=== PATIENT | male | born 1965 | race African-American/Black ===

== ENCOUNTER 2022-11-07 12:22 | Inpatient (IN) ==
[2022-11-07] MEDS ORDERED: SODIUM CHLORIDE 0.9% 1000ML 1,000 ML IV ONE ×2 (12:53→13:36)
[2022-11-07 12:54] LABS: Basophils # (auto) 0.01 K/uL (0-0.2); Basophils % (auto) 0.1 %; Hematocrit (blood only) 51.2 % (42.0-52.0); Hemoglobin 14.9 g/dl (14.0-18.0); Immature Granulocytes # (auto) 0.09 K/uL (0.01-0.20); Immature Granulocytes % (auto) 0.8 %; Lymphocytes # (auto) 0.31 K/uL (1.2-3.4); Lymphocytes % (auto) 2.7 %; Mean Corpuscular Hemoglobin 32.3 pg (25.0-34.0); Mean Corpuscular Hgb Conc 29.1 g/dL (32.0-36.0); Mean Corpuscular Volume 110.8 fL (80.0-100.0); Mean Platelet Volume 12.9 fL (9.4-12.4); Monocytes # (auto) 1.11 K/uL (0.11-0.59); Monocytes % (auto) 9.7 %; Neutrophils # (auto) 9.95 K/uL (1.40-6.50); Neutrophils % (auto) 86.7 %; Platelet Count 264 K/uL (130-400); RDW Coefficient of Variation 13.7 % (11.5-14.5); RDW Standard Deviation 56.2 fL (36.4-46.3); Red Blood Count 4.62 M/uL (4.70-6.10); White Blood Count 11.47 K/ul (4.8-10.8)
--- NOTE | 2022-11-07 13:19 | Electrocardiogram Report ---
Test Reason : Blood Pressure : / mmHG Vent. Rate : 120 BPM Atrial Rate : 120 BPM P-R Int : 132 ms QRS Dur : 088 ms QT Int : 334 ms P-R-T Axes : 057 058 043 degrees QTc Int : 472 ms Sinus tachycardia Otherwise normal ECG No previous ECGs available Confirmed by Geremias Casey ([id number]) on 11/07/2022 1:19:00 PM Referred By: Confirmed By:Geremias Casey
[2022-11-07] MEDS ORDERED: GLUCAGON FOR INJ 1 MG VIAL SQ PRN (13:36)
[2022-11-07] MEDS ORDERED: GLUCOSE 10 TAB/TUBE PO PRN (13:36)
[2022-11-07] MEDS ORDERED: HHS GOAL RANGE 250-350 mg/dl ONE (13:36)
[2022-11-07] MEDS ORDERED: GLUCOSE 40% GEL 15 GM TUBE PO PRN (13:36)
[2022-11-07] MEDS ORDERED: CARBOHYDRATES FOR HYPOGLYCEMIA PO PRN (13:36)
[2022-11-07] MEDS ORDERED: DEXTROSE 50% 50 ML SYRINGE IV PRN (13:36)
[2022-11-07 13:39] LABS: RBC Morphology Unremarkable
[2022-11-07 13:40] LABS: Albumin Globulin Ratio 1.3 (0.9-2); Albumin Level 4.7 gm/dl (3.4-5.0); BUN Creatinine Ratio 21.7 (10-20); Bilirubin,Total 0.8 mg/dl (0.2-1.0); Calcium 10.3 mg/dl (8.5-10.1); Creatinine Clr Calc Pharmacy 41.5 ml/min; Est GFR (African American) 28.3 ml/min; Est GFR (Non-African American) 24.4 ml/min; Globulin 3.5 gm/dl (2.5-4.0); Potassium 7.4 mmol/L (3.5-5.1); Total Protein 8.2 gm/dl (6.0-8.3)
[2022-11-07] MEDS ORDERED: SODIUM ZIRCONIUM CYCLOSILICATE 10 GM PACKET PO STA (13:40)
[2022-11-07] MEDS ORDERED: SODIUM BICARB 8.4% INJ 50 MEQ/50 ML SYR IV STA (13:40)
[2022-11-07] MEDS ORDERED: NovoLIN-R INSULIN PER UNIT CHARGE IV STA (13:40)
[2022-11-07 13:43] LABS: iSTAT Blood Urea Nitrogen 50 mg/dl (7-18); iSTAT Carbon Dioxide 13 mmol/L (24-31); iSTAT Chloride 107 mmol/L (101-112); iSTAT Creatinine 1.9 mg/dl (0.6-1.3); iSTAT Glucose > 700 mg/dl (70-99); iSTAT Hematocrit 47 % (42-52); iSTAT Potassium 7.7 mmol/L (3.3-5.0); iSTAT Sodium 134 mmol/L (135-144)
--- NOTE | 2022-11-07 13:51 | Emergency Department Note ---
Impression & Plan DKA (diabetic ketoacidosis), Acute hyperglycemia, ANNY (acute kidney injury), Acute dehydration, Hyperkalemia ED Provider Note INFORMANT: Patient and EMS ED PROVIDER(S): Henri Camacho DO CHIEF COMPLAINT: Altered mental status, hyperglycemia PLAN: Disposition: Admission Condition: Stable Outpatient prescription management: none Referral: I spoke with the hospitalist, who will see the patient for admission/observation and further evaluation and consultation. MEDICAL DECISION MAKING: This is a 57-year-old male who presents to the ED with a chief complaint of change in mental status/confusion. The patient is also hyperglycemic. The patient was at a local truck stop. 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 He states that he has not been taking his medications for his diabetes for the past 2 months or so. He was at a truck stop and was a little confused. A passerby called EMS. EMS found him to be hyperglycemic. Initially he refused transport but eventually was convinced to come in for evaluation. I did speak with EMS about the patient. The patient denies any illness. Denies any abdominal pains, chest pains or shortness of breath. He states he is unsure why has not been taking his medications. He does have a diabetic specialist in [place]. The patie nt's vital signs reveal tachycardia. Smell of ketones in the room. Exam reveals tachypnea. BSG was high. Glucose from the lab came back at 1255. BUN is 60 and creatinine is 2.76. This is likely acute kidney injury related to dehydration. Anion gap is 28 consistent with a metabolic acidosis. His potassium was 7.4 with an EKG showing sinus tach at a rate of 120. His CBC did not show any concerning leukocytosis or anemia. The patient was hydrated with 2 L normal saline IV. He was given 10 units of regular IV insulin as well as started on insulin drip. He was given some calcium gluconate as his EKG did show some peaked T waves. He was also given Lokelma. He will be seen by the hospitalist service for further evaluation and care. Triage Nursing notes reviewed. Vital Signs: reviewed Prior /Outside records reviewed: none Differential diagnosis: Differential includes DKA, HH NK, dehydration, acute kidney injury, electrolyte abnormality, dysrhythmia, infection, other. Diagnostics, as interpreted by me: 12 lead ECG: Sinus tach rate of 120. No ST elevation. There is some peaked T waves in the anterior leads. Normal QTC. No PVCs. Cardiac Monitoring was ordered: Sinus tachycardia rate in the 120 range. Medical decision rules: none Imaging studies: Chest x-ray: No acute disease. No pneumothorax or pneumonia. Procedures: none. Critical care: I have personally spent 30 minutes of critical care time in the direct management of this patient. This includes bedside care, interpretation of diagnostic studies, and testing, discussion with consultants, patient, and family members, and other required patient management activities. This 30 minutes is in excess of all separately billable procedures. HPI: See MDM above. PAST MEDICAL HISTORY: See Below PAST SURGICAL HISTORY: See Below SOCIAL HISTORY: See Below HOME MEDICATIONS: See Below ALLERGIES: See Below VITALS: See Below PHYSICAL EXAMINATION: CONSTITUTIONAL/VITAL SIGNS: Reviewed GENERAL: Non-toxic in appearance. INTEGUMENTARY: Warm, dry, and [place]. HEAD: Normocephalic. EYES: without scleral icterus. ENT/OROPHARYNX: clear and moist. RESPIRATORY: No increased work of breathing. Lungs clear. CARDIOVASCULAR: Regular rate. Regular rhythm. GI/ABDOMEN: Soft and nontender. . EXTREMITIES: Normal NEUROLOGICAL: Intact without focal deficits. PSYCHIATRIC: Normal affect. MUSCULOSKELETAL: Normal. TRIAGE NURSING DOCUMENTATION REVIEWED. Past Med/Surg History Social History Smoking Status: Heavy tobacco smoker Tobacco Type: Cigarettes Feels Safe at Home: Yes Results & Data (ED) Vital Signs Vital Signs - 24 hr 11/07/22 12:39 11/07/22 12:39 Temperature 35.7 C L Temperature Source Oral Pulse Rate 125 H Pulse Rhythm Regular Pulse Strength Normal Respiratory Rate 24 Respiratory Effort / Characteristics Non-Labored Respiratory Depth Normal Respiratory Pattern Regular Blood Pressure 128/72 Blood Pressure Mean 90 Blood Pressure Position Lying Pulse Oximetry 98 Oxygen Delivery Method Room Air Room Air Sepsis Recent Fever Within 48 Hours No Sepsis New/Unexplained Change in Mental Status Yes Sepsis Action Taken by Nursing Physician Notified Laboratory Data 11/07/22 12:40 11/07/22 12:40 Lab Results 11/07/22 11/07/22 11/07/22 Range/Units 12:40 12:40 12:52 WBC 11.47 H (4.8-10.8) K/ul RBC 4.62 L (4.70-6.10) M/uL Hgb 14.9 (14.0-18.0) g/dl POC Hgb (14.0-18.0) g/dl Hct 51.2 (42.0-52.0) % POC Hct (42-52) % MCV 110.8 H (80.0-100.0) fL MCH 32.3 (25.0-34.0) pg MCHC 29.1 L (32.0-36.0) g/dL RDW Std Deviation 56.2 H (36.4-46.3) fL RDW Coeff of Jose M 13.7 (11.5-14.5) % Plt Count 264 (130-400) K/uL MPV 12.9 H (9.4-12.4) fL Immature Gran % (Auto) 0.8 % Neut % (Auto) 86.7 % Lymph % (Auto) 2.7 % Dawes % (Auto) 9.7 % Eos % (Auto) 0.0 % Baso % (Auto) 0.1 % Neut # (Auto) 9.95 H (1.40-6.50) K/uL Lymph # (Auto) 0.31 L (1.2-3.4) K/uL Dawes # (Auto) 1.11 H (0.11-0.59) K/uL Eos # (Auto) 0.00 (0-0.50) K/uL Baso # (Auto) 0.01 (0-0.2) K/uL Immature Gran # (Auto) 0.09 (0.01-0.20) K/uL RBC Morphology Unremarkable POC Sodium (135-144) mmol/L Sodium 132 L (136-145) mmol/L POC Potassium (3.3-5.0) mmol/L Potassium 7.4 H* (3.5-5.1) mmol/L POC Chloride (101-112) mmol/L Chloride 92 L (98-107) mmol/L Carbon Dioxide 12 L (21-32) mmol/L POC Total CO2 (24-31) mmol/L Anion Gap 28 H (3-11) POC Anion Gap (16-25) mmol/L POC BUN (7-18) mg/dl BUN 60 H (6-23) mg/dl Creatinine 2.76 H (0.6-1.4) mg/dl POC Creatinine (0.6-1.3) mg/dl Est Cr Clr Drug Dosing 41.5 ml/min Est GFR ( Amer) 28.3 ml/min Est GFR (Non-Af Amer) 24.4 ml/min BUN/Creatinine Ratio 21.7 H (10-20) Glucose 1255 H* (70-99(Fasting)) mg/dl POC Glucose (other) (70-99) mg/dl Lactate (0.4-2.0) mmol/L Calcium 10.3 H (8.5-10.1) mg/dl POC Ioniz Calcium Judson (1.12-1.32) mmol/l Phosphorus 10.0 H (2.5-4.9) mg/dl Magnesium 3.4 H (1.7-2.4) mg/dl Total Bilirubin 0.8 (0.2-1.0) mg/dl AST 7 L (13-39) U/L ALT 8 (7-52) U/L Alkaline Phosphatase 88 (34-104) U/L Total Protein 8.2 (6.0-8.3) gm/dl Albumin 4.7 (3.4-5.0) gm/dl Globulin 3.5 (2.5-4.0) gm/dl Albumin/Globulin Ratio 1.3 (0.9-2) Procalcitonin 0.62 H (0-0.5) ng/ml SARS-CoV-2, RNA, NAAT (NEGATIVE) 11/07/22 11/07/22 11/07/22 Range/Units 13:15 13:15 13:28 WBC (4.8-10.8) K/ul RBC (4.70-6.10) M/uL Hgb (14.0-18.0) g/dl POC Hgb 16.0 (14.0-18.0) g/dl Hct (42.0-52.0) % POC Hct 47 (42-52) % MCV (80.0-100.0) fL MCH (25.0-34.0) pg MCHC (32.0-36.0) g/dL RDW Std Deviation (36.4-46.3) fL RDW Coeff of Jose M (11.5-14.5) % Plt Count (130-400) K/uL MPV (9.4-12.4) fL Immature Gran % (Auto) % Neut % (Auto) % Lymph % (Auto) % Dawes % (Auto) % Eos % (Auto) % Baso % (Auto) % Neut # (Auto) (1.40-6.50) K/uL Lymph # (Auto) (1.2-3.4) K/uL Dawes # (Auto) (0.11-0.59) K/uL Eos # (Auto) (0-0.50) K/uL Baso # (Auto) (0-0.2) K/uL Immature Gran # (Auto) (0.01-0.20) K/uL RBC Morphology POC Sodium 134 L (135-144) mmol/L Sodium (136-145) mmol/L POC Potassium 7.7 H* (3.3-5.0) mmol/L Potassium (3.5-5.1) mmol/L POC Chloride 107 (101-112) mmol/L Chloride (98-107) mmol/L Carbon Dioxide (21-32) mmol/L POC Total CO2 13 L (24-31) mmol/L Anion Gap (3-11) POC Anion Gap 22.0 (16-25) mmol/L POC BUN 50 H (7-18) mg/dl BUN (6-23) mg/dl Creatinine (0.6-1.4) mg/dl POC Creatinine 1.9 H (0.6-1.3) mg/dl Est Cr Clr Drug Dosing ml/min Est GFR ( Amer) ml/min Est GFR (Non-Af Amer) ml/min BUN/Creatinine Ratio (10-20) Glucose (70-99(Fasting)) mg/dl POC Glucose (other) > 700 H* (70-99) mg/dl Lactate 2.5 H* (0.4-2.0) mmol/L Calcium (8.5-10.1) mg/dl POC Ioniz Calcium Judson 1.20 (1.12-1.32) mmol/l Phosphorus (2.5-4.9) mg/dl Magnesium (1.7-2.4) mg/dl Total Bilirubin (0.2-1.0) mg/dl AST (13-39) U/L ALT (7-52) U/L Alkaline Phosphatase (34-104) U/L Total Protein (6.0-8.3) gm/dl Albumin (3.4-5.0) gm/dl Globulin (2.5-4.0) gm/dl Albumin/Globulin Ratio (0.9-2) Procalcitonin (0-0.5) ng/ml SARS-CoV-2, RNA, NAAT NEGATIVE (NEGATIVE) Administered Medications Insulin Human Regular 250 (units/ Sodium Chloride) 250 mls @ 0 mls/hr IV .Q0M [facility]; Protocol Stop: 12/07/22 13:44 Last Admin: 11/07/22 14:33 Dose: 4.7 units/hr, 4.7 mls/hr Documented By: MAZIN Co-signed By: JOSUE Discontinued Medications Sodium Chloride (Nss 1000ml) 1,000 mls @ 999 mls/hr IV .Q1H1M ONE Stop: 11/07/22 13:53 Last Infusion: 11/07/22 14:13 Dose: 0 mls/hr Documented By: Admin: 11/07/22 13:17 Dose: 999 mls/hr Documented By: MAZIN Sodium Chloride (Nss 1000ml) 1,000 mls @ 999 mls/hr IV .Q1H1M ONE Stop: 11/07/22 14:36 Last Infusion: 11/07/22 14:39 Dose: 0 mls/hr Documented By: Admin: 11/07/22 13:59 Dose: 999 mls/hr Documented By: JOSUE Calcium Gluconate () 1,000 mg in 60 mls @ 240 mls/hr IV Q15M [facility] Stop: 11/07/22 14:14 Last Admin: 11/07/22 14:20 Dose: 240 mls/hr Documented By: Infusion: 11/07/22 14:20 Dose: 0 mls/hr Documented By: Admin: 11/07/22 13:58 Dose: 240 mls/hr Documented By: JOSUE Insulin Human Regular (Novolin-R Insulin Per Unit Charge) 10 units IV NOW STA Stop: 11/07/22 13:41 Last Admin: 11/07/22 13:58 Dose: 10 units Documented By: JOSUE Co-signed By: CURT Sodium Bicarbonate (Sodium Bicarb 8.4% Inj 50 Meq/50 Ml Syr) 100 meq IV NOW STA Stop: 11/07/22 13:41 Last Admin: 11/07/22 13:58 Dose: 100 meq Documented By: RSL Sodium Zirconium Cyclosilicate (Sodium Zirconium Cyclosilicate 10 Gm Packet) 10 gm PO NOW STA Stop: 11/07/22 13:41 Last Admin: 11/07/22 13:58 Dose: 10 gm Documented By: RSL Imaging Data Radiologist's Impression: Chest X-Ray 11/07/22 13:57 XR chest 1V portable HISTORY: 57 years-old Male dka/hhnk acute hypertension COMPARISON: None TECHNIQUE: AP view of the chest FINDINGS: Cardiac silhouette is enlarged. No pneumothorax, pleural effusion, airspace consolidation or pulmonary edema. Bones of the chest appear grossly intact. IMPRESSION: No acute process. ACT 112: Negative or not required by law. The above report was generated using voice recognition software. It may contain grammatical, syntax or spelling errors. Electronically signed by: Jaden Spicer M.D. 11/07/2022 2:47 PM Discharge Plan Visit Data Chief Complaint: Lethargic Stated Complaint: HYPERGLYCEMIA ED Provider: Henri Camacho Discharge Problem: DKA (diabetic ketoacidosis), Acute hyperglycemia, ANNY (acute kidney injury), Acute dehydration, Hyperkalemia Forms Stand Alone Forms: [facility] Referrals Referrals: PCP,NO [Primary Care Provider] -
[2022-11-07] MEDS: CALCIUM GLUCONATE 1,000 MG/60 ML BAG IV SCH ×2 (13:58→14:20)
--- NOTE | 2022-11-07 14:03 | History & Physical Report ---
Date of Service November 07, 2022 Assessment & Plan (1) Type 2 diabetes mellitus with hyperosmolar hyperglycemic state (HHS): Plan: Increased anion gap metabolic acidosis 2/2 HHS - s/p 2L NSS, 100meq biarb, 2g cagluc, 10g SZC in ED - VBG 7.18//34/14, Bicarb drip placed initially and transitioned to Normosol after improving/potassium normalized Lactate 2.5 --> 2.1 Creatinine 2.76, patient reports normal creatinine at baseline. Trended Anion gap 28, Bicarb 12 Potassium 7.4, sodium 132 (corrected sodium for glucose is 150). Has received 2 L of crystalloid resuscitation, likely still several liters down. Patient has not been taking insulin for several weeks, suspect progressive chronic process at risk for osmotic damage. Given concurrent hyperkalemia will treat with normal saline for another 1-2 L, continue insulin, trend BMP. Transitined to normosol when able. Patient is mentating and following commands at time of assessment Insulin drip, HHS protocol Follow until serum glucose less than 250, anion gap closes, bicarb greater than 15, pH remains above 7.3 - Hyperphosphatemia: Intact renal function, patient with brisk diuresis of several 100 cc while in ER. Continue to trend. No concurrent hypocalcemia -Lactate and procalcitonin are elevated in the setting of severe volume depletion and HHS. 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 Is in the setting of stopping outpatient medications including metformin, 2 forms of insulin, and a third agent unclear pending reconciliation. Will defer empiric antibiotics at this time of leukocytosis rises, patient becomes febrile, or shows clinical signs of infection will cover empirically at that time. If needed avoid Rocephin 2/2 calcium infusions. Phosphorus 10.0 --> Repeat post fluid rescusitation Magnesium 3.4 (2) ANNY (acute kidney injury): Plan: Trend, 2/2 HHS. Management as noted (3) Hyperkalemia: Plan: Admitting potassium 7.7, was treated in ER with fluids/insulin drip/sodium zirconium Recheck dropped rapidly to 4.4, placement was switched to LR with KCl. Subsequently jeramie to 5.4, fluids adjusted to LR Has received calcium gluconate x2 in ER, 1 additional given at 1400 Patient with nonsustained run of V. tach. Calcium being infused, magnesium recheck pending, BMP recheck pending (4) Hypertension: Plan: Hold lisinopril with ANNY Plan DVT prophylaxis: SCDs, heparin. Defer Lovenox in the setting of ANNY Dispo: PCU CODE STATUS: Full code Diet: N.p.o. History of Present Illness Primary Care Provider: NO PCP Regino Yeboah is a 57-year-old male who presented with confusion and hyperglycemia. 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 Has not been taking antidiabetic medications for 2 months. Passerby found him confused and called EMS at which point he was brought to the hospital. Regino is seen at the bedside. He is sleepy but arouses easily, somewhat irritable but answers questions and follows commands. 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 He reports he is on insulin, and 2 other me dications but has not taken these in several weeks. Reports he has not had any chest pain, chest pressure, shortness breath, difficulty breathing, denies renal disease, NC, neuropathy, strokes. He is oriented to name, year, and state. Denies hospitalization for DM in the past. DM Specialist: Shannan Rodriguez in [place], [place]. [phone]. Pt give spermission to call for information. Medical History: Reviewed Medications: Reviewed Surgical History: Reviewed Allergies: Reviewed Social History: Endorses tobacco use Code Status: Full code Allergies Allergy/AdvReac Type Severity Reaction Status Date / Time No Known Allergies Allergy Unverified 11/07/22 15:12 Home Medications Medication Instructions Recorded Confirmed Type atorvastatin 40 mg tablet 40 mg PO DAILY 11/07/22 11/07/22 History ergocalciferol (vitamin D2) 1,250 50,000 unit PO WK 11/07/22 11/07/22 History mcg (50,000 unit) capsule insulin aspart U-100 100 unit/mL 0 unit subcut DIRECTED 11/07/22 11/07/22 History (3 mL) subcutaneous pen (Novolog FlexPen U-100 Insulin aspart) insulin degludec 200 unit/mL (3 0 unit subcut DIRECTED 11/07/22 11/07/22 History mL) subcutaneous pen (Tresiba FlexTouch U-200 insulin) lisinopril 5 mg tablet 5 mg PO DAILY 11/07/22 11/07/22 History metformin 500 mg tablet,extended 100 mg PO BID 11/07/22 11/07/22 History release 24 hr pioglitazone 30 mg tablet 30 mg PO DAILY 11/07/22 11/07/22 History Past Med/Surg History Social History Smoking Status: Current every day smoker Tobacco Type: Cigarettes Tobacco Cessation Education Requested by Patient: No Hx Alcohol Use: No Hx Substance Use: No Preferred Language: [employer] Equipment Engineer Required: No Beliefs That Will Affect Care: None Feels Safe at Home: Yes Assistive Devices: None Review of Systems Review of Systems: All systems reviewed & are unremarkable except as noted in Subjective Physical Exam Physical Exam: General: A&Ox3. NAD. Cooperative. HEENT: Atraumatic, normocephalic. Mucous membranes are cracked/dry. Pupils equal and reactive to light. Hearing grossly intact. Pulm: CTAB A&P. -wheezes, -rales, -rhonchi. Symmetrical chest rise. No increased work of breathing. No respiratory distress. Cardiac: Regular, tachycardic, -mrg. Radial pulses intact and symmetrical. Abdominal: Nontender, nondistended, soft. BS present. Extremities: Warm, dry. No edema. Rn Oncology Clinical strength intact, wiggles toes. Endorses sensation intact to soft touch in hands and feet. Results & Data Results & Data ([facility]) Vital Signs (Past 12 Hours) Vital Signs Temp Pulse Resp BP Pulse Ox O2 Del Method 11/07/22 12:39 Room Air 11/07/22 12:39 35.7 C L 125 H 24 128/72 98 Room Air PG Care Time/CCT Total # of Minutes Spent Total Time Spent with Patient: Total time spent is greater than 50% in coordination of care (as documented) at patient's floor/unit and/or counseling patient: Coding Level of Care Code 33379 INT INP/OBS CARE 3/75MIN Diagnoses Type 2 diabetes mellitus with hyperosmolar hyperglycemic state (HHS) E11.00 ANNY (acute kidney injury) N17.9 Hyperkalemia E87.5 Hypertension I10
[2022-11-07 14:20] LABS: Magnesium 3.4 mg/dl (1.7-2.4)
[2022-11-07] MEDS ORDERED: STAT IV STA (14:22)
[2022-11-07] MEDS: INSULIN REGULAR 250 UNITS in SODIUM CHLORIDE 0.9% 247.5 ML IV SCH ×2 (14:33→17:41)
--- NOTE | 2022-11-07 14:48 | XRay Report ---
XR chest 1V portable HISTORY: 57 years-old Male dka/hhnk acute hypertension COMPARISON: None TECHNIQUE: AP view of the chest FINDINGS: Cardiac silhouette is enlarged. No pneumothorax, pleural effusion, airspace consolidation or pulmonar y edema. Bones of the chest appear grossly intact. IMPRESSION: No acute process. ACT 112: Negative or not required by law. The above report was generated using voice recognition software. It may contain grammatical, syntax o r spelling errors. Electronically signed by: Jaden Spicer M.D. 11/07/2022 2:47 PM
[2022-11-07] MEDS ORDERED: SODIUM CHLORIDE 0.9% 1000ML 1,000 ML IV SCH ×2 (14:51→15:00)
[2022-11-07 15:05] LABS: Base Excess VBG -13.4 mEq/L; HCO3 VBG 14 mmol/L; Oxygen Saturation VBG < 60.0 %; PCO2 VBG 38 mmHg (38-50); PO2 VBG 34 mmHg; pH VBG 7.18 (7.36-7.41)
[2022-11-07] MEDS: Patient's ALLERGY Info needs ENTERED SCH ×2 (15:12→15:59)
[2022-11-07] MEDS ORDERED: PHARMACY GLYCEMIC MGMT CONSULT PRN (15:48)
[2022-11-07] MEDS ORDERED: SODIUM BICARBONATE 8.4% 100 MEQ in WATER, STERILE 1,000 ML IV SCH (16:00)
[2022-11-07 16:08] LABS: Appearance Urine Clear (Clear); Bilirubin Urine Negative (Negative); Blood Urine Negative (Negative); Color Urine Yellow; Glucose Urine UA 3+ (Negative); Ketones Urine 4+ (Negative); Leukocyte Esterase Urine Negative (Negative); Nitrite Urine Negative (Negative); Protein Urine Negative (Negative); Specific Gravity Urine 1.029 (1.000-1.030); Urobilinogen Urine Negative (Negative)
[2022-11-07 16:12] LABS: BUN Creatinine Ratio 24.2 (10-20); Calcium 9.6 mg/dl (8.5-10.1); Creatinine Clr Calc Pharmacy 55.3 ml/min; Est GFR (Non-African American) 34.5 ml/min; Potassium 4.4 mmol/L (3.5-5.1)
[2022-11-07] MEDS ORDERED: CALCIUM GLUCONATE 10% 1,000 MG in DEXTROSE 5% 50 ML IV ONE (16:30)
[2022-11-07] MEDS ORDERED: POTASSIUM CHLORIDE IV SCH (16:45)
[2022-11-07] MEDS ORDERED: NORMOSOL R IV SCH (16:45)
[2022-11-07 17:04] LABS: BUN Creatinine Ratio 22.6 (10-20); Calcium 10.9 mg/dl (8.5-10.1); Creatinine Clr Calc Pharmacy 49.8 ml/min; Est GFR (African American) 35.2 ml/min; Est GFR (Non-African American) 30.4 ml/min; Potassium 5.4 mmol/L (3.5-5.1)
[2022-11-07] MEDS: INSULIN ASPART PER UNIT SC SCH ×2 (17:15→19:20)
[2022-11-07] MEDS: NORMOSOL-R 1,000 ML IV SCH (17:44)
[2022-11-07 18:22] LABS: Magnesium 3.3 mg/dl (1.7-2.4); Phosphorus 5.2 mg/dl (2.5-4.9)
[2022-11-07 19:28] LABS: Estimated Average Glucose 341 mg/dl; Hemoglobin A1C 13.5 % (4.5-5.6)
[2022-11-07 20:27] LABS: Base Excess VBG -4.8 mEq/L; HCO3 VBG 22 mmol/L; Oxygen Saturation VBG < 60.0 %; PCO2 VBG 44 mmHg (38-50); PO2 VBG 31 mmHg
[2022-11-07 21:10] LABS: BUN Creatinine Ratio 24.5 (10-20); Calcium 11.1 mg/dl (8.5-10.1); Creatinine Clr Calc Pharmacy 57.2 ml/min; Est GFR (African American) 41.7 ml/min; Potassium 5.1 mmol/L (3.5-5.1)
[2022-11-07 23:38] LABS: Base Excess VBG -1.8 mEq/L; HCO3 VBG 25 mmol/L; Oxygen Saturation VBG < 60.0 %; PCO2 VBG 48 mmHg (38-50); PO2 VBG 35 mmHg; pH VBG 7.32 (7.36-7.41)
[2022-11-08 00:12] LABS: Calcium 11.6 mg/dl (8.5-10.1)
[2022-11-08 00:30] LABS: BUN Creatinine Ratio 25.3 (10-20); Creatinine Clr Calc Pharmacy 61.6 ml/min; Est GFR (African American) 45.5 ml/min; Est GFR (Non-African American) 39.3 ml/min
[2022-11-08] MEDS: NORMOSOL-R 1,000 ML IV SCH (00:40)
[2022-11-08 04:41] LABS: Base Excess VBG 1.9 mEq/L; HCO3 VBG 29 mmol/L; Oxygen Saturation VBG < 60.0 %; PCO2 VBG 55 mmHg (38-50); PO2 VBG 29 mmHg; pH VBG 7.33 (7.36-7.41)
[2022-11-08 04:44] LABS: BUN Creatinine Ratio 25.7 (10-20); Calcium 10.8 mg/dl (8.5-10.1); Creatinine Clr Calc Pharmacy 61.2 ml/min; Est GFR (African American) 45.2 ml/min; Potassium 4.7 mmol/L (3.5-5.1)
[2022-11-08] MEDS ORDERED: D5W AND 1/2NSS 1,000 ML IV SCH (05:30)
[2022-11-08] MEDS ORDERED: LANTUS PER UNIT CHARGE SQ ONE (07:30)
[2022-11-08] MEDS: INSULIN ASPART PER UNIT SC SCH ×4 (07:51→21:38)
[2022-11-08 09:13] LABS: BUN Creatinine Ratio 27.2 (10-20); Calcium 9.8 mg/dl (8.5-10.1); Creatinine Clr Calc Pharmacy 63.6 ml/min; Est GFR (African American) 47.4 ml/min; Est GFR (Non-African American) 40.9 ml/min; Potassium 4.8 mmol/L (3.5-5.1)
--- NOTE | 2022-11-08 10:22 | Pharmacy Report ---
Pharmacy Glycemic Short Note 2 - Date of Service November 08, 2022 - Glycemic Short BSG Results (Last 24 hours): 11/07/22 11/07/22 11/07/22 12:40 13:28 15:17 Glucose 1255 H* 748 H* POC Glucose POC Glucose (other) > 700 H* 11/07/22 11/07/22 11/07/22 15:45 16:03 18:00 Glucose 774 H* POC Glucose > 600 H* 582 H* POC Glucose (other) 11/07/22 11/07/22 11/07/22 18:46 19:52 20:17 Glucose 511 H* POC Glucose 552 H* 491 H* POC Glucose (other) 11/07/22 11/07/22 11/07/22 20:52 21:55 23:24 Glucose 401 H* POC Glucose 465 H* 431 H* POC Glucose (other) 11/08/22 11/08/22 11/08/22 00:02 01:07 02:02 Glucose POC Glucose 334 H* 276 H 267 H POC Glucose (other) 11/08/22 11/08/22 11/08/22 02:56 03:56 04:01 Glucose 249 H POC Glucose 250 H 214 H POC Glucose (other) 11/08/22 11/08/22 11/08/22 05:05 07:47 08:34 Glucose 429 H* POC Glucose 198 H 287 H POC Glucose (other) OUTPATIENT ANTIDIABETIC REGIMEN: * unknown * A1c ~13.5 ASSESSMENT: * [facility], started on insulin drip on arrival. 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 Patient was found confused and brought into hospital. * Continues on insulin drip this morning, infusing at ~4 units/hr * Labs improving this morning - will consider adding long acting insulin for this morning / will give full weight dose stress of 3 for now and see how BSGs trend * Per RN, patient is still pretty drowsy this morning and not able to give any details on previous insulin dosing PLAN FOR INPATIENT GLYCEMIC CONTROL: * Hold outpatient oral diabetes medications * Basal insulin * Lantus 65 units x 1 * Continue insulin drip per protocol
[2022-11-08] MEDS: SODIUM CHLORIDE 0.45 % 1,000 ML IV SCH ×2 (10:47→19:43)
[2022-11-08] MEDS: INSULIN REGULAR 250 UNITS in SODIUM CHLORIDE 0.9% 247.5 ML IV SCH (12:53)
--- NOTE | 2022-11-08 15:12 | Hospitalist Progress Note ---
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 Presented with AMS Found to be in hyperosmolar hyperglycemic state, high anion gap metabolic acidosis, hyperkalemia, ANNY Transfered to ICU, continued on Insulin DKA regimen He is currently adequately fluid rescucitated Insulin drip is being turned down and overlapped with sub cut Insulin, appreciate pharmacy Dextrose saline has been changed to 1/2 saline @125cc/hr Will continue to monitor him,. continue glucose checks He is tolerating diet (2) ANNY (acute kidney injury): Plan: Unsure of his renal baseline -Trend, 2/2 HHS. Management as noted (3) Hyperkalemia: Plan: now resolved following management (4) Hypertension: Plan: Hold lisinopril with ANNY (5) High anion gap metabolic acidosis: Plan: secondary to poorly controlled DM Anion gap is closing continue fluid rehydration Plan DVT prophylaxis: SCDs, heparin. Defer Lovenox in the setting of ANNY Dispo: PCU CODE STATUS: Full code Diet: patient is awake and insisted on food before blood draws Admission and Anticipated Discharge Date Admission Date: November 07, 2022 Subjective patient seen and examined,feels very sleepy, said he didnt sleep well last night due to frequent blood glucose checks Review of Systems Review of Systems: All systems reviewed are negative, apart from the ones contained in the history. Physical Exam Physical Exam: The patient is awake, alert and oriented 3, well developed and well nourished, normocephalic and atraumatic, lying in bed and in no acute distress. HEENT--PERRL, EOMI, mucous membranes and oropharynx mildly dry Neck--supple. No JVD. No bruits. Thyroid normal, trachea midline, no adenopat hy. Heart--normal S1 and S2. No murmurs, rubs or gallops. Lungs--clear bilaterally, no respiratory distress, no accessory muscle use. Abdomen--normal bowel sounds and soft. Mild epigastric and left sided abdominal pain Extremities--no cyanosis or clubbing. No edema. Dermatologic--normal skin turgor, normal color, no abnormal lymph nodes, no rash. Neurologic--cranial nerves II through XII grossly intact. Rheumatologic--normal range of motion. Psychiatric--normal affect. Results & Data Results & Data ([facility]) Vital Signs (Past 12 Hours) Vital Signs Temp Pulse Resp BP Pulse Ox O2 Del Method 11/08/22 12:00 114 H 13 11/08/22 10:42 136/81 11/08/22 10:42 106 H 12 94 Room Air 11/08/22 10:52 98.6 F 11/08/22 10:00 118 H 12 97 11/08/22 08:00 120 H 16 96 11/08/22 08:00 141/84 H 11/08/22 07:00 121 H 18 93 11/08/22 07:00 137/76 11/08/22 08:00 98.8 F 11/08/22 06:10 121 H 5 L 93 11/08/22 06:00 131 H 17 92 11/08/22 06:00 136/86 11/08/22 05:50 122 H 13 92 11/08/22 05:40 121 H 14 95 11/08/22 05:30 130 H 22 94 11/08/22 05:20 129 H 24 92 11/08/22 05:10 116 H 19 97 11/08/22 05:00 122 H 12 95 11/08/22 05:00 139/92 11/08/22 04:50 120 H 0 L 95 11/08/22 04:40 121 H 14 92 11/08/22 04:30 119 H 13 95 11/08/22 04:20 117 H 15 94 11/08/22 04:10 118 H 0 L 93 11/08/22 04:00 117 H 12 94 11/08/22 04:00 123/81 11/08/22 03:50 121 H 13 95 11/08/22 03:40 119 H 14 94 11/08/22 03:30 120 H 14 95 11/08/22 03:20 117 H 10 L 94 11/08/22 03:10 121 H 9 L 93 PG Care Time/CCT Total # of Minutes Spent Total Time Spent with Patient: Total time spent is greater than 50% in coordination of care (as documented) at patient's floor/unit and/or counseling patient: Coding Level of Care Code 48636 SUB INP/OBS CARE 2/35MIN Diagnoses Type 2 diabetes mellitus with hyperosmolar hyperglycemic state (HHS) E11.00 ANNY (acute kidney injury) N17.9 Hyperkalemia E87.5 Hypertension I10 High anion gap metabolic acidosis E87.29 Time Spent (min) 35
[2022-11-08] MEDS ORDERED: COUGH DROP (SUGAR FREE) LOZ 24 LOZ/1 BOX BUCCAL ONE (20:03)
[2022-11-08] MEDS: ACETAMINOPHEN 325 MG TAB PO PRN (22:39)
[2022-11-09] MEDS: INSULIN ASPART PER UNIT SC SCH ×6 (00:29→20:11)
[2022-11-09] MEDS: SODIUM CHLORIDE 0.45 % 1,000 ML IV SCH ×3 (01:31→18:18)
[2022-11-09] MEDS: DOCUSATE SODIUM/SENNA 50/8.6MG TAB PO SCH (07:22)
[2022-11-09 07:52] LABS: Hematocrit (blood only) 32.4 % (42.0-52.0); Hemoglobin 10.7 g/dl (14.0-18.0); Mean Corpuscular Hemoglobin 32.7 pg (25.0-34.0); Mean Corpuscular Volume 99.1 fL (80.0-100.0); Mean Platelet Volume 12.5 fL (9.4-12.4); Platelet Count 133 K/uL (130-400); RDW Coefficient of Variation 13.2 % (11.5-14.5); RDW Standard Deviation 47.8 fL (36.4-46.3); Red Blood Count 3.27 M/uL (4.70-6.10); White Blood Count 6.27 K/ul (4.8-10.8)
[2022-11-09 08:16] LABS: BUN Creatinine Ratio 22.6 (10-20); Calcium 8.7 mg/dl (8.5-10.1); Creatinine Clr Calc Pharmacy 95.2 ml/min; Est GFR (African American) 81.4 ml/min; Est GFR (Non-African American) 70.3 ml/min; Magnesium 1.9 mg/dl (1.7-2.4); Phosphorus 2.6 mg/dl (2.5-4.9); Potassium 3.6 mmol/L (3.5-5.1)
[2022-11-09] MEDS: LANTUS PER UNIT CHARGE SQ SCH (08:23)
--- NOTE | 2022-11-09 08:45 | Pharmacy Report ---
Pharmacy Glycemic Short Note 2 - Date of Service November 09, 2022 - Glycemic Short BSG Results (Last 24 hours): 11/08/22 11/08/22 11/08/22 08:34 10:40 12:46 Glucose 429 H* POC Glucose 351 H* 207 H 11/08/22 11/08/22 11/08/22 13:54 15:09 21:29 Glucose POC Glucose 131 H 136 H 173 H 11/09/22 11/09/22 11/09/22 00:13 03:31 06:35 Glucose 206 H POC Glucose 155 H 141 H 11/09/22 07:09 Glucose POC Glucose 200 H OUTPATIENT ANTIDIABETIC REGIMEN: * unknown * A1c ~13.5 ASSESSMENT: 11/09: * Insulin drip discontinued yesterday afternoon. Patient received 65 units of Lantus yesterday AM and an additional 19 units of bolus insulin after the drip shut off. BSGs largely within goal range since discontinuation. * Tolerating diet. Other stressors stable. * Fasting BSG this AM elevated to 200mg/dL. Will titrate basal to 75 units today (~15% increase). Will tighten Novolog given lunch BSG trend today. 11/08: * Patient admitted with [facility], started on insulin drip on arrival. 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 Patient was found confused and brought into hospital. * Continues on insulin drip this morning, infusing at ~4 units/hr * Labs improving this morning - will consider adding long acting insulin for this morning / will give full weight dose stress of 3 for now and see how BSGs trend * Per RN, patient is still pretty drowsy this morning and not able to give any details on previous insulin dosing PLAN FOR INPATIENT GLYCEMIC CONTROL: * Hold outpatient oral diabetes medications * Basal insulin * Lantus 75units SQ qAM * Novolog ACHS * Carb ratio: 3gm/unit * Correction factor: 10mg/dL/unit
[2022-11-09] MEDS ORDERED: LANTUS PER UNIT CHARGE SQ SCH (09:00)
[2022-11-09] MEDS: POLYETHYLENE (MIRALAX) 17 GM PACK PO PRN (12:30)
--- NOTE | 2022-11-09 14:09 | Hospitalist Progress Note ---
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 Presented with AMS Found to be in hyperosmolar hyperglycemic state, high anion gap metabolic acidosis, hyperkalemia, ANNY Transfered to ICU, continued on Insulin DKA regimen He is currently adequately fluid rescucitated Insulin drip has been discontinued, now on Glargine 70 units daily and ISS Anion gap has closed, glucose is now under better control Dextrose saline has been changed to 1/2 saline @125cc/hr Will continue to monitor him,. continue glucose checks He is tolerating diet (2) ANNY (acute kidney injury): Plan: Now resolved (3) Hyperkalemia: Plan: now resolved following management (4) Hypertension: Plan: Hold lisinopril with ANNY (5) High anion gap metabolic acidosis: Plan: Resolved (6) Acute encephalopathy: Plan: Metabolic encephalopathy, POA, resolved (7) V tach: Plan: Notified by the nurse about 5 runs of V Tach on tele electrolytes wnl will obtain EKG Plan DVT prophylaxis: SCDs, heparin. Defer Lovenox in the setting of ANNY Dispo: PCU CODE STATUS: Full code Diet: tolerating diet Social Issues: Patient said the reason he wasnt taking his insulin was because he could not afford it Will involve social service agency director to see if there are cheaper options of insulin Admission and Anticipated Discharge Date Admission Date: November 07, 2022 Subjective patient seen and examined,feels very sleepy, said he didnt sleep well last night due to frequent blood glucose checks Review of Systems Review of Systems: All systems reviewed are negative, apart from the ones contained in the history. Physical Exam Physical Exam: The patient is awake, alert and oriented 3, well developed and well nourished, normocephalic and atraumatic, lying in bed and in no acute distress. HEENT--PERRL, EOMI, mucous membranes and oropharynx mildly dry Neck--supple. No JVD. No bruits. Thyroid normal, trachea midline, no adenopathy. Heart--normal S1 and S2. No murmurs, rubs or gallops. Lungs--clear bilaterally, no respiratory distress, no accessory muscle use. Abdomen--normal bowel sounds and soft. Mild epigastric and left sided abdominal pain Extremities--no cyanosis or clubbing. No edema. Dermatologic--normal skin turgor, normal color, no abnormal lymph nodes, no rash. Neurologic--cranial nerves II through XII grossly intact. Rheumatologic--normal range of motion. Psychiatric--normal affect. Results & Data Results & Data ([facility]) Vital Signs (Past 12 Hours) Vital Signs Temp Pulse Pulse Resp BP Pulse Ox O2 Del Method 11/09/22 12:20 98.2 F 107 H 19 141/90 H 93 Room Air 11/09/22 08:00 117 H 11/09/22 08:17 98.4 F 112 H 20 141/83 H 94 Room Air 11/09/22 04:00 98.1 F 98 H 18 114/73 90 Room Air PG Care Time/CCT Total # of Minutes Spent Total Time Spent with Patient: Total time spent is greater than 50% in coordination of care (as documented) at patient's floor/unit and/or counseling patient: Coding Level of Care Code 83960 SUB INP/OBS CARE 2/35MIN Diagnoses Type 2 diabetes mellitus with hyperosmolar hyperglycemic state (HHS) E11.00 ANNY (acute kidney injury) N17.9 Hyperkalemia E87.5 Hypertension I10 High anion gap metabolic acidosis E87.29 Acute encephalopathy G93.40 V tach I47.20 Time Spent (min) 35
[2022-11-09] MEDS: ACETAMINOPHEN 325 MG TAB PO PRN (21:57)
[2022-11-10] MEDS: SODIUM CHLORIDE 0.45 % 1,000 ML IV SCH ×2 (01:24→09:27)
[2022-11-10 07:10] LABS: BUN Creatinine Ratio 14.7 (10-20); Calcium 8.4 mg/dl (8.5-10.1); Creatinine Clr Calc Pharmacy 116.7 ml/min; Est GFR (African American) 102.6 ml/min; Est GFR (Non-African American) 88.5 ml/min; Magnesium 1.8 mg/dl (1.7-2.4); Phosphorus 2.4 mg/dl (2.5-4.9); Potassium 3.5 mmol/L (3.5-5.1)
[2022-11-10] MEDS ORDERED: COUGH DROP (SUGAR FREE) LOZ 24 LOZ/1 BOX BUCCAL PRN (07:13)
--- NOTE | 2022-11-10 07:56 | Electrocardiogram Report ---
Test Reason : Blood Pressure : / mmHG Vent. Rate : 104 BPM Atrial Rate : 104 BPM P-R Int : 126 ms QRS Dur : 076 ms QT Int : 344 ms P-R-T Axes : 047 031 036 degrees QTc Int : 452 ms Sinus tachycardia Otherwise normal ECG When compared with ECG of 07-NOV-2022 12:29, No significant change was found Confirmed by Sam Sanders ([id number]) on 11/10/2022 7:56:24 AM Referred By: REFERRED SELF Confirmed By:Sam Sanders
[2022-11-10] MEDS ORDERED: bisacodyL 10 MG SUPP PR STA (07:57)
[2022-11-10] MEDS: POLYETHYLENE (MIRALAX) 17 GM PACK PO PRN (08:43)
[2022-11-10] MEDS: DOCUSATE SODIUM/SENNA 50/8.6MG TAB PO SCH (08:43)
[2022-11-10] MEDS: LANTUS PER UNIT CHARGE SQ SCH (08:43)
[2022-11-10] MEDS: INSULIN ASPART PER UNIT SC SCH (08:44)
[2022-11-10] MEDS ORDERED: INSULIN ASPART PER UNIT SC SCH (11:30)
[2022-11-10] MEDS ORDERED: FLUCONAZOLE 100 MG TAB PO ONE (12:45)
--- NOTE | 2022-11-10 14:02 | Discharge Summary ---
Date of Service November 10, 2022 Admission HPI Per Admitting Provider Regino Yeboah is a 57-year-old male who presented with confusion and hyperglycemia. 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 Has not been taking antidiabetic medications for 2 months. Passerby found him confused and called EMS at which point he was brought to the hospital. Regino is seen at the bedside. He is sleepy but arouses easily, somewhat irritable but answers questions and follows commands. 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 He reports he is on insulin, and 2 other medications but has not taken these in several weeks. Reports he has not had any chest pain, chest pressure, shortness breath, difficulty breathing, denies renal disease, HI, neuropathy, strokes. He is oriented to name, year, and state. Denies hospitalization for DM in the past. DM Specialist: Shannan Rodriguez in [place], [place]. [phone]. Pt give spermission to call for information. Medical History: Reviewed Medications: Reviewed Surgical History: Reviewed Allergies: Reviewed Social History: Endorses tobacco use Code Status: Full code Principal Diagnosis hyperosmolar hyperglycemic episode Discharge Exam The patient is awake, alert and oriented 3, well developed and well nourished, normocephalic and atraumatic, lying in bed and in no acute distress. HEENT--PERRL, EOMI, mucous membranes and oropharynx mildly dry Neck--supple. No JVD. No bruits. Thyroid normal, trachea midline, no adenopathy. Heart--normal S1 and S2. No murmurs, rubs or gallops. Lungs--clear bilaterally, no respiratory distress, no accessory muscle use. Abdomen--normal bowel sounds and soft. Mild epigastric and left sided abdominal pain Extremities--no cyanosis or clubbing. No edema. Dermatologic--normal skin turgor, normal color, no abnormal lymph nodes, no rash. Neurologic--cranial nerves II through XII grossly intact. Rheumatologic--normal range of motion. Psychiatric--normal affect. 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 Presented with AMS Found to be in hyperosmolar hyperglycemic state, high anion gap metabolic acidosis, hyperkalemia, ANNY Transfered to ICU, continued on Insulin DKA regimen He is currently adequately fluid rescucitated Insulin drip has been discontinued, now on Glargine 70 units daily and ISS Anion gap has closed, glucose is now under better control Dextrose saline has been changed to 1/2 saline @125cc/hr Will continue to monitor him,. continue glucose checks He is tolerating diet I spoke to his [employer] Dr Rodriguez in [place], she confirmed he has not picked up his medicine He takes Tresiba 80 unkits daily, Novolog sliding scale, up to 50 units daily, Metformin ER 500mg BID, Pioglitazone 30mg daily (2) ANNY (acute kidney injury): Now resolved (3) Hyperkalemia: now resolved following management (4) Hypertension: Hold lisinopril with ANNY (5) High anion gap metabolic acidosis: Resolved (6) Acute encephalopathy: Metabolic encephalopathy, POA, resolved (7) V tach: Notified by the nurse about 5 runs of V Tach on tele electrolytes wnl will obtain EKG (8) Thrush, oral: jameelley the cause of his odynophagia exam shows some white crust on tongue will prescribe Fluconazole 100mg daily x 7 days Plan DVT prophylaxis: SCDs, heparin. Defer Lovenox in the setting of ANNY Dispo: PCU CODE STATUS: Full code Diet: tolerating diet Social Issues: Patient said the reason he wasnt taking his insulin was because he could not afford it Will involve social media sr strategy manager to see if there are cheaper options of insulin Total Time Total Time Spent Total Time Spent (In Minutes): 35 Discharge Plan Discharge Items Patient Disposition: Home - Self-Care Reason For Visit: HHS Discharge Diagnosis: Hyperosmolar Hyperglycemic Activity: Resume your previous activity Non-emergency contact: Primary Care Provider Call non-emergency contact if: you have any medication questions Follow-up/Referrals: PCP,NO [Primary Care Provider] - Diet: Carb Consistent or DM2 Addtl Attending Provider Instructions: 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 lisinopril 5 mg tablet 5 mg PO DAILY Rx Instructions: filled 07/24/22 for 90 day supply, I could not verify with patient to see if he is still on it. ergocalciferol (vitamin D2) 1,250 mcg (50,000 unit) capsule 50,000 unit PO WK pioglitazone 30 mg tablet 30 mg PO DAILY Rx Instructions: could not verify with pt. metformin 500 mg tablet extended release 24 hr 100 mg PO BID Rx Instructions: per Pharmacy, filled 10/13/2022 for 30 days, could not verify with pt insulin aspart U-100 [Novolog FlexPen U-100 Insulin] 100 unit/mL (3 mL) insulin pen 0 unit SUBCUT DIRECTED Rx Instructions: last filled 10/13/2022 insulin degludec [Tresiba FlexTouch U-200] 200 unit/mL (3 mL) insulin pen 0 unit SUBCUT DIRECTED Rx Instructions: Last filled 10/13/2022 Discharge Orders: Discharge Order (Routine); Ordered 11/10/22 Ordered By: Rohit Quintana/Other Patient Handouts: Managing Type 2 Diabetes, Managing Diabetes: The A1C Test, Taking Medicine for Diabetes Admission Data Admit Date/Time: 11/07/22 14:22 Attending Provider: Rohit Carver Admit Provider: Hiro Machado Primary Care Provider: PCP,NO Other Providers: Hiro Machado Other Interventions: Discharge Summary Assessment (RN) Last Done: 11/10/22 12:53 Coding Level of Care Code HOSP INP/OBS DISCH >30 MIN Diagnoses Type 2 diabetes mellitus with hyperosmolar hyperglycemic state (HHS) E11.00 ANNY (acute kidney injury) N17.9 Hyperkalemia E87.5 Hypertension I10 High anion gap metabolic acidosis E87.29 Acute encephalopathy G93.40 V tach I47.20 Thrush, oral B37.0 Time Spent (min) 35
--- NOTE | 2022-11-10 14:14 | Pharmacy Report ---
Pharmacy Glycemic Short Note 2 - Date of Service November 10, 2022 - Glycemic Short BSG Results (Last 24 hours): 11/09/22 11/09/22 11/10/22 16:07 20:09 06:03 Glucose 188 H POC Glucose 89 127 H 11/10/22 11/10/22 07:19 11:18 Glucose POC Glucose 241 H 181 H OUTPATIENT ANTIDIABETIC REGIMEN: * unknown * A1c ~13.5 ASSESSMENT: 11/10: * Fasting BSG today elevated at 241 mg/dL. Patient was given 75 units of Lantus again this AM; will be given 10 additional units at HS to provider a ~15% total daily dose increase from yesterday. May consider redistributing bolus dosing more evenly throughout the day; will reevaluate tomorrow. * Lunch BSG elevated at 181 mg/dL. Separate Novolog parameters were entered for Breakfast and Lunch/Dinner/HS. Breakfast parameters are tighter to address past trend of high lunchtime BSG's, while also avoiding BSG's under goal, such as the 89 mg/dL obtained yesterday at dinner. 11/09: * Insulin drip discontinued yesterday afternoon. Patient received 65 units of L antus yesterday AM and an additional 19 units of bolus insulin after the drip shut off. BSGs largely within goal range since discontinuation. * Tolerating diet. Other stressors stable. * Fasting BSG this AM elevated to 200mg/dL. Will titrate basal to 75 units today (~15% increase). Will tighten Novolog given lunch BSG trend today. 11/08: * Patient admitted with [facility], started on insulin drip on arrival. 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 Patient was found confused and brought into hospital. * Continues on insulin drip this morning, infusing at ~4 units/hr * Labs improving this morning - will consider adding long acting insulin for this morning / will give full weight dose stress of 3 for now and see how BSGs trend * Per RN, patient is still pretty drowsy this morning and not able to give any details on previous insulin dosing PLAN FOR INPATIENT GLYCEMIC CONTROL: * Hold outpatient oral diabetes medications * Goal Range: 110-140 mg/dL * Basal insulin * Lantus 75 units SQ qAM, 10 units qPM * Novolog: Breakfast * Carb ratio: 3gm/unit * Correction factor: 10mg/dL/unit * Novolog: Lunch/Dinner/HS * Carb ratio: 3.5 gm/unit * Correction factor: 12 mg/dL/unit
[2022-11-10] MEDS ORDERED: LANTUS PER UNIT CHARGE SQ ONE (21:00)
[2022-11-11] MEDS ORDERED: INSULIN ASPART PER UNIT SC SCH (07:30)
== END 2022-11-10 16:05 | disposition home or self-care (01) | DRG 637 ==
LOC: ED 12:22 → 1E 14:22 → SUATTDRO 14:22 → 1E 15:23 → 2S 11-08 21:53